=== PATIENT | male | born 1975 | race Caucasian/White ===

== ENCOUNTER → 2020-02-20 | Outpatient (CLI) | payer OTHER ==
--- NOTE | 2020-02-20 14:53 | RADIOLOGY REPORT (SQ) ---
EXAM DESCRIPTION: U/S SCROTUM W/DOPPLER IMAGES COMPLETED DATE/TIME: 02/20/2020 2:33 pm REASON FOR STUDY: N50.819 TESTICULAR PAIN, UNSPECIFIED N50.819 TESTICULAR PAIN, UNSPECIFIED COMPARISON: None. TECHNIQUE: Static and realtime silverio scale imaging of the scrotum and testes. Selected color Doppler and spectral images recorded to document blood flow. LIMITATIONS: None. FINDINGS: RIGHT: TESTICLE: Normal size, 4.3 cm. Normal echotexture. Normal blood flow. No mass. EPIDIDYMIS: Heterogeneous, 7 x 10 x 19 mm. HYDROCELE OR VARICOCELE: No. HERNIA OR EXTRA-TESTICULAR MASS: No. OTHER: No other significant finding. LEFT: TESTICLE: Normal size, 4.2 cm. Normal echotexture. Normal blood flow. No mass. EPIDIDYMIS: Normal. HYDROCELE OR VARICOCELE: No. HERNIA OR EXTRA-TESTICULAR MASS: No. OTHER: No other significant finding. IMPRESSION: Possible right epididymitis. No testicular mass is seen. There is no testicular torsio n. TECHNICAL DOCUMENTATION: JOB ID: [id number] 2010 [employer]- All Rights Reserved Reading location - IP/workstation name: [email or web address]
== END ==
LOC: RAD 13:20
PROVIDERS: ATTEND Physician Assistant
DX: N50.811 Right testicular pain (principal)
CPT/HCPCS: 76870; 93976